=== PATIENT | female | born 1970 | race Caucasian/White ===

== ENCOUNTER → 2017-05-10 | Outpatient (CLI) | payer OTHER ==
[2015-07-13 08:15] VITALS: BP 126/55
[~2017-05-10] MED LIST: AMOX875T PO; MUPI22OI2 TP; PRED20TA PO
--- NOTE | 2017-05-10 17:01 | RAD ---
Indication: Smashed hand with pain in the metacarpal region. Time of exam 1651 hours. 3 views of the right hand were obtained. The carpus is unremarkable. The metacarpals appear intact. The phalanges appear intact. No fractures are seen. The soft tissues are unremarkable. Impression: No acute bony abnormality is detected.
== END | disposition home or self-care (01) ==
LOC: RAD 16:44
PROVIDERS: ATTEND Internal Medicine
DX: M79.641 Pain in right hand (principal)
CPT/HCPCS: 73130

== ENCOUNTER 2022-01-04 16:45 | Emergency (ER) | payer BC, OTHER ==
[~2022-01-04] VITALS: Ht 152.4 cm; Wt 50.0 kg
[2022-01-04] MEDS ORDERED: KETOROLAC 15 MG/ML VIAL. IVP ONE (18:45)
[2022-01-04] MEDS ORDERED: IV NORMAL SALINE 1,000ML 1,000 ML IV ONE (18:45)
[2022-01-04] MEDS ORDERED: ONDANSETRON PF 4 MG/2 ML VIAL. IVP ONE (18:45)
[2022-01-04] MEDS ORDERED: MORPHINE SULFATE 2 MG/ML DISP.SYRIN. IV ONE (18:45)
--- NOTE | 2022-01-04 19:09 | RAD ---
Exam: CT of abdomen and pelvis without contrast INDICATION: Left flank pain TECHNIQUE: Sequential axial images through the abdomen and pelvis obtained without IV contrast. Sagit laila and coronal reformatted images were reconstructed from the axial data and reviewed. Exposure: One or more of the following in the visualized dose reduction techniques were utilized for this examination: 1. Automated exposure control 2. Adjustment of the MA and/or KV according to patient size 3. Use of iterative of reconstructive technique Comparisons: None FINDINGS: Heart size is normal. No pericardial effusion. Visualized lung bases are clear. No pleural effusion. Evaluation solid organs limited secondary to noncontrast technique. Liver, spleen, pancreas, gallbladder and adrenals are unremarkable. No perinephric inflammation or hydronephrosis. No renal or ureteral calculi are identified. Bladder is partially distended and appears thin-walled. Uterus is not enlarged. No abnormal adnexal m ass. Large and small bowel are unremarkable. Appendix is normal. No free abdominal air or fluid. No obstru ction. Abdominal aorta has normal course and caliber. No enlarged intra-abdominal lymph nodes are identified. No suspicious osseous lesions or acute fractures. IMPRESSION: No acute process identified within the abdomen and pelvis. No renal or ureteral calculi no evidence f or obstructive uropathy. Electronically signed by: Jessika Claire MD (01/04/2022 7:07 PM) [facility]
[2022-01-04 19:16] LABS: BASO # 0.1 x10^3/uL (0.0-0.2); BASO % 1 % (0-3); EOS # 0.1 x10^3/uL (0.0-0.7); EOS % 1 % (0-3); HEMATOCRIT 37.9 % (36.0-47.0); HEMOGLOBIN 12.9 g/dL (12.0-15.5); LYMPH # 2.2 x10^3/uL (1.0-4.8); LYMPH % 25 % (24-48); MEAN CORPUSCULAR HEMOGLOBIN 32 pg (25-35); MEAN CORPUSCULAR HGB CONC 34 g/dL (31-37); MEAN CORPUSCULAR VOLUME 94 fL (79-100); MONO # 0.4 x10^3/uL (0.0-1.1); MONO % 5 % (0-9); NEUT # 6.1 x10^3uL (1.8-7.7); NEUT % 69 % (31-73); PLATELET COUNT 328 x10^3/uL (140-400); RED BLOOD COUNT 4.04 x10^6/uL (3.50-5.40); RED CELL DISTRIBUTION WIDTH 13.2 % (11.5-14.5); WHITE BLOOD COUNT 8.9 x10^3/uL (4.0-11.0)
[2022-01-04 19:24] LABS: CALCIUM 9.1 mg/dL (8.5-10.1); CREATININE 0.6 mg/dL (0.6-1.0); GFR 105.8
[2022-01-04 19:30] LABS: ALBUMIN 4.1 g/dL (3.4-5.0); ALBUMIN/GLOBULIN RATIO 1.7 (1.0-1.7); TOTAL BILIRUBIN 0.3 mg/dL (0.2-1.0); TOTAL PROTEIN 6.5 g/dL (6.4-8.2)
--- NOTE | 2022-01-04 20:49 | PHYS DOC ---
Past History Past Medical History: Other Past Surgical History: , Tubal ligation Alcohol Use: None Drug Use: Marijuana, Other Adult General Chief Complaint Chief Complaint: FLANK PAIN HPI HPI The patient is a 51-year-old female who is otherwise healthy. She presents for evaluation of left flank pain with onset this morning at about 8 AM, about 10 hours prior to arrival. Discomfort has waxed and waned but has never gone away. It is severe at times. Associated nausea without vomiting. No associated fevers, upper respiratory congestion/rhinorrhea, cough, sore throat, shortness of breath or chest discomfort of any kind, focal abdominal pain of any kind, midline back pain, dysuria, hematuria, polyuria or oliguria, unusual vaginal discharge or bleeding, changes in bowel habits, pain or swelling, weakness, numbness or tingling to arms or legs. Patient is alert and pleasantly and appropriately interactive and in no acute distress with appropriate vital signs upon initial evaluation here in the emergency department. No therapy for symptoms prior to arrival. Review of Systems Review of Systems A 12 point review of systems was completed and was negative except where noted in HPI above. Current Medications Current Medications Current Medications Medications (Trade) Dose Ordered Sig/Felecia Start Time Stop Time Status Last Admin Dose Admin Ketorolac Tromethamine (Toradol 15mg Vial) 15 mg 1X ONCE 01/04/22 18:45 01/04/22 18:46 DC 01/04/22 18:45 15 MG Morphine Sulfate (Morphine 2mg Syringe) 2 mg 1X ONCE 01/04/22 18:45 01/04/22 18:46 DC 01/04/22 18:45 2 MG Ondansetron HCl (Zofran) 4 mg 1X ONCE 01/04/22 18:45 01/04/22 18:46 DC 01/04/22 18:45 4 MG Sodium Chloride 1,000 ml @ 1,000 mls/hr 1X ONCE 01/04/22 18:45 01/04/22 19:44 DC 01/04/22 18:45 1,000 MLS/HR Allergies Allergies Allergies Coded Allergies Type Severity Reaction Last Updated Verified povidone-iodine Allergy Intermediate rash 07/13/15 Yes Physical Exam Physical Exam 51-year-old female appearing nontoxic and in no acute distress. Head is nor mocephalic and atraumatic. Neck is supple and nontender. Oropharynx is moist. Lungs are clear to auscultation at all stations. There is a normal S1 and S2 without rubs or gallops and capillary refill is appropriate, less than 2 seconds globally. Abdomen is soft, nontender and nondistended. Skin is warm and dry without cyanosis, clubbing or edema. Psychiatrically, the patient demonstrates appropriate mood and affect and is alert. Current Patient Data Vital Signs Vital Signs Date Time Temp Pulse Resp B/P (MAP) Pulse Ox O2 Delivery O2 Flow Rate FiO2 01/04/22 18:45 16 01/04/22 18:02 98.4 60 152/72 (98) 98 Room Air Lab Results Laboratory Tests Test 01/04/22 18:55 01/04/22 20:13 White Blood Count 8.9 x10^3/uL (4.0-11.0) Red Blood Count 4.04 x10^6/uL (3.50-5.40) Hemoglobin 12.9 g/dL (12.0-15.5) Hematocrit 37.9 % (36.0-47.0) Mean Corpuscular Volume 94 fL (79-100) Mean Corpuscular Hemoglobin 32 pg (25-35) Mean Corpuscular Hemoglobin Concent 34 g/dL (31-37) Red Cell Distribution Width 13.2 % (11.5-14.5) Platelet Count 328 x10^3/uL (140-400) Neutrophils (%) (Auto) 69 % (31-73) Lymphocytes (%) (Auto) 25 % (24-48) Monocytes (%) (Auto) 5 % (0-9) Eosinophils (%) (Auto) 1 % (0-3) Basophils (%) (Auto) 1 % (0-3) Neutrophils # (Auto) 6.1 x10^3uL (1.8-7.7) Lymphocytes # (Auto) 2.2 x10^3/uL (1.0-4.8) Monocytes # (Auto) 0.4 x10^3/uL (0.0-1.1) Eosinophils # (Auto) 0.1 x10^3/uL (0.0-0.7) Basophils # (Auto) 0.1 x10^3/uL (0.0-0.2) Sodium Level 139 mmol/L (136-145) Potassium Level 4.0 mmol/L (3.5-5.1) Chloride Level 102 mmol/L (98-107) Carbon Dioxide Level 26 mmol/L (21-32) Anion Gap 11 (6-14) Blood Urea Nitrogen 9 mg/dL (7-20) Creatinine 0.6 mg/dL (0.6-1.0) Estimated GFR (Cockcroft-Gault) 105.8 BUN/Creatinine Ratio 15 (6-20) Glucose Level 93 mg/dL (70-99) Calcium Level 9.1 mg/dL (8.5-10.1) Total Bilirubin 0.3 mg/dL (0.2-1.0) Aspartate Amino Transferase (AST) 25 U/L (15-37) Alanine Aminotransferase (ALT) 33 U/L (14-59) Alkaline Phosphatase 65 U/L (46-116) Total Protein 6.5 g/dL (6.4-8.2) Albumin 4.1 g/dL (3.4-5.0) Albumin/Globulin Ratio 1.7 (1.0-1.7) POC Urine HCG, Qualitative hcg negative (Negative) EKG EKG [] Radiology/Procedures Radiology/Procedures Exam: CT of abdomen and pelvis without contrast INDICATION: Left flank pain TECHNIQUE: Sequential axial images through the abdomen and pelvis obtained without IV contrast. Sagittal and coronal reformatted images were reconstructed from the axial data and reviewed. Exposure: One or more of the following in the visualized dose reduction techniques were utilized for this examination: 1. Automated exposure control 2. Adjustment of the MA and/or KV according to patient size 3. Use of iterative of reconstructive technique Comparisons: None FINDINGS: Heart size is normal. No pericardial effusion. Visualized lung bases are clear. No pleural effusion. Evaluation solid organs limited secondary to noncontrast technique. Liver, spleen, pancreas, gallbladder and adrenals are unremarkable. No perinephric inflammation or hydronephrosis. No renal or ureteral calculi are identified. Bladder is partially distended and appears thin-walled. Uterus is not enlarged. No abnormal adnexal mass. Large and small bowel are unremarkable. Appendix is normal. No free abdominal air or fluid. No obstruction. Abdominal aorta has normal course and caliber. No enlarged intra-abdominal lymph nodes are identified. No suspicious osseous lesions or acute fractures. IMPRESSION: No acute process identified within the abdomen and pelvis. No renal or ureteral calculi no evidence for obstructive uropathy. Electronically signed by: Jessika Hernandez MD (01/04/2022 7:07 PM) [facility] DICTATED AND SIGNED BY: JESSIKA HERNANDEZ MD DATE: 01/04/221900 CC: CARLITO SURESH MD; YAQUELIN HIRSCH ~MTH0 0 [] Heart Score C/O Chest Pain: No Risk Factors: Risk Factors: DM, Current or recent (<one month) smoker, HTN, HLP, family history of CAD, obesity. Risk Scores: Risk Factors: DM, Current or recent (<one month) smoker, HTN, HLP, family history of CAD, obesity. Course & Med Decision Making Course & Med Decision Making Well-appearing female with appropriate vital signs and reassuring clinical examination here for evaluation of left flank pain with onset this morning. No history of kidney stones. Will place IV and given IV fluid bolus, medication for discomfort and nausea as per flowsheet and will check labs, urine and a stone protocol CT scan of the abdomen and pelvis. We will then reevaluate. 2133: Labs, urine and CT of the abdomen and pelvis are all entirely without evidence of acute process. With IV fluids and medication as per flowsheet patient endorses complete resolution of her presenting flank pain. She feels much, much better. Given reassuring work-up in this well-appearing 51-year-old with normal vital signs, reassuring clinical examination and resolution of symptoms with therapy here in the ED, will discharge home to follow-up closely with primary care in the next 1 to 2 days. Will discharge home with a course of anti-inflammatory medication and with some Zofran which may be used for nausea as needed. Patient understands that if her symptoms recur or worsen or if other new symptoms of concern develop that she should return to the emergency department right away for reevaluation. All questions are answered. Dragon Disclaimer Dragon Disclaimer This electronic medical record was generated, in whole or in part, using a voice recognition dictation system. Departure Departure: Impression: Primary Impression: Left flank pain Disposition: HOME / SELF CARE / HOMELESS Condition: IMPROVED Referrals: YAQUELIN HIRSCH (PCP) Patient Instructions: Flank Pain Additional Instructions: Follow-up very closely with your primary doctor in the office in the next 1 to 2 days for a reevaluation of your symptoms and to discussion of next best steps in care. Drink plenty of fluids to stay hydrated and get plenty of rest. You may take a 50 mg diclofenac tablet every 8 hours as needed for any discomfort. Take with food to prevent stomach upset. For nausea you may take a Zofran tablet underneath your tongue (let it dissolve) every 8 hours as needed. Return to the emergency department right away as we discussed for recurrent or worsening symptoms of any kind or with any other new symptoms of concern. Scripts Ondansetron (ONDANSETRON ODT) 4 Mg Tab.rapdis 1 TAB PO PRN Q6-8HRS PRN for NAUSEA, #10 TAB Prov: CARLITO SURESH MD 01/04/22 Diclofenac Potassium (DICLOFENAC POTASSIUM) 50 Mg Tablet 1 TAB PO PRN TID PRN for PAIN, #30 TAB Prov: CARLITO SURESH MD 01/04/22 CARLITO SURESH MD Jan 04, 2022 20:49
[2022-01-04 20:57] VITALS: BP 125/82
[2022-01-04 21:14] LABS: CLARITY,URINE CLEAR; COLOR,URINE YELLOW; GLUCOSE,URINE NEG (NEG); NITRITE,URINE NEG (NEG); UROBILINOGEN,URINE 0.2 mg/dL (0.2 mg/dL)
[2022-01-04 21:15] LABS: BACTERIA,URINE FEW /HPF (0-FEW); SQUAMOUS EPITHELIAL CELL,UR FEW /LPF
[2022-01-04 21:23] LABS: U PREG PATIENT NEGATIVE (NEG)
[2022-01-04] MEDS ORDERED: ONDA4TAB12 PO (21:36)
[2022-01-04] MEDS ORDERED: DICL50TA2 PO (21:36)
== END 2022-01-04 21:40 | disposition home or self-care (01) ==
LOC: ER 16:45
DX: R10.9 Unspecified abdominal pain (principal); R11.0 Nausea; Z98.890 Other specified postprocedural states; Z98.51 Tubal ligation status; Z88.8 Allergy status to other drugs, medicaments and biological substances
CPT/HCPCS: 36415; 74176; 80053; 81001; 81025; 85025; 96361; 96374; 96375; 99284; J1885; J2270; J2405; J7030